=== PATIENT | male | born 2000 | race Caucasian/White ===

== ENCOUNTER 2022-05-15 16:18 | Emergency (ER) | payer OTHER, SELFPAY ==
[2022-05-15 16:20] VITALS: BP 112/93; PULSE 91; RESP 16; TEMP 36.6; O2SAT 99; BMI 29.1
--- NOTE | 2022-05-15 16:35 | EX.ED.DYSGE1 ---
HPI History of Present Illness Chief Complaint: Dizziness Narrative Narrative: 21-year-old male with history of migraine headache presenting with a headache. He states he does have light and sound sensitivity. He states he was at work earlier and noticed that he started to get dizzy and describes vertiginous dizziness. He states this lasted about 5 minutes and then went away but he developed a migraine. He states that his primary care normally treats him for migraine is about 3 hours away and is not from here. He states usually ibuprofen would help with the headache but he has not tried any. He does complain of nausea as well. He states he has been drinking plenty of fluids today and does not think he is dehydrated. He states his only other medical problem is some back issues distantly. No fever, chills. PFSH [facility] Medical History Injury of conjunctiva and corneal abrasion without foreign body, right eye, initial encounter Seasonal allergies Home Medications meclizine 25 mg chewable tablet 25 mg PO TID PRN dizziness #30 tabs 05/15/22 [Rx Last Taken Unknown] Allergy/AdvReac Type Severity Reaction Status Date / Time No Known Allergies Allergy Unverified 03/08/21 14:33 Surgical History Hx of appendectomy Social History Smoking Status: Never smoker alcohol intake: never ROS ROS ED Constitutional Constitutional ED: Denies chills or fever(s) Eyes Eyes: Denies change in vision or diplopia ENT ENT ED: Reports other Details: Vertiginous dizziness ; Denies rhinorrhea or sore throat Cardiovascular Cardiovascular: Denies chest pain or palpitations Respiratory/Chest Respiratory/Chest: Denies cough or dyspnea Gastrointestinal Gastrointestinal: Denies abdominal pain or constipation Genitourinary Genitourinary ED: Denies dysuria or hematuria Musculoskeletal Musculoskeletal: Denies arthralgias or back pain Integumentary Denies abscess Neurologic Neurologic: Reports headache(s); Denies paresthesias Psychiatric Psychiatric: Denies anxiety or depression EXAM Physical Exam Const Vital Signs: 05/15/22 16:20 05/15/22 17:40 Temperature 97.9 F Temperature Source Temporal Pulse Rate 91 82 Respiratory Rate 16 14 Blood Pressure 112/93 H 113/68 Blood Pressure Mean 99 83 Pulse Ox 99 99 Oxygen Delivery Method Room Air Positive well nourished General Appearance ED: NAD HEENT Reports moist mucous membranes Negative for trauma Eyes PERRL and EOMs intact bilaterally Eyes Narrative: Vertiginous dizziness and nystagmus with [place] Chest Wall inspection of chest normal Resp normal respiratory effort and clear to auscultation bilaterally Cardio regular rate and regular rhythm Extremity normal to inspection Neuro Sensorium / Orientation: alert Motor Exam: strength 5/5 throughout Psych mental status grossly normal Skin no wounds and skin turgor normal MDM MDM MDM Narrative Medical decision making narrative: Patient states his vertiginous symptoms are improved. I was able to elicit his vertiginous dizziness and nystagmus with [place]Hallpike exam. I suspect this is what is causing his headache. He does have a history of migraines. He is complaining of light sensitivity and sound sensitivity. Patient was medicated with Reglan, Benadryl, Toradol as well as meclizine. On reevaluation at 6 PM the patient feels very much improved and is ready to be discharged home. Patient will be given meclizine for home. He is to follow-up with his out-of-town doctor. Impression: 1. Benign positional vertigo 2. migraine 3. Nausea Discharge Plan Triage Chief Complaint: Dizziness ED Provider: Larry Tran Dx/Rx/DC Orders Instructions: Self-Care for Headaches, ED BPV Vertigo Prescriptions: New meclizine 25 mg tablet,chewable 25 mg PO TID PRN (Reason: dizziness) Qty: 30 0RF Stand Alone Forms: ED Work / School Excuse Primary Care Provider: Care Physician,No Primary Referrals: NOT,DEFINED [Non-Staff] - Disposition Disposition: Home, Self Care Discharge Date/Time: 05/15/22 18:01
[2022-05-15] MEDS: 0.9% Normal Saline 1,000 ML 999 ML IV (16:45)
[2022-05-15] MEDS: Meclizine HCl 25 MG Tablet PO (16:45)
[2022-05-15] MEDS: Ketorolac 15 MG/ML Vial IV (16:46)
[2022-05-15] MEDS: DiphenhydrAMINE 50 MG/ML Syringe 25 MG IV (16:46)
[2022-05-15] MEDS: Metoclopramide 10 MG/2 ML Vial IV (16:46)
[2022-05-15 17:40] VITALS: BP 113/68; PULSE 82; RESP 14; O2SAT 99
== END 2022-05-15 18:01 | disposition home or self-care (01) ==
PROVIDERS: Emergency Provider Student in an Organized Health Care Education/Training Program; Visit Provider Student in an Organized Health Care Education/Training Program
DX: H81.10 Benign paroxysmal vertigo, unspecified ear (principal); G43.909 Migraine, unspecified, not intractable, without status migrainosus; R11.0 Nausea
CPT/HCPCS: 96361; 96374; 96375; 99283; J7030; A4216